=== PATIENT | male | born 1950 | race Two or more races ===

== ENCOUNTER 2017-03-15 15:25 | Emergency (ER) | payer BC ==
[2017-03-15] MEDS ORDERED: LACTATED RINGERS 2,000 ML ONE (16:30)
[2017-03-15 16:55] LABS: ABSOLUTE NEUTROPHIL COUNT 5.6 K/mm3 (1.8-7.7); BASO % 0.3 % (0.2-1.0); EOS # 0.3 (0.0-0.5); EOS % 3.4 % (0.9-2.9); HEMATOCRIT 35.8 % (32.0-52.0); HEMOGLOBIN 11.8 gm/l (14.0-18.0); IMM NEUT% 0.3 % (0-1); LYMPH # 1.5 (1.0-4.8); LYMPH % 18.5 % (15-45); MEAN CELL VOLUME 91.6 fl (80.0-94.0); MEAN CORPUSCULAR HEMOGLOBIN 30.2 pg (27.0-31.0); MONO # 0.6 (0.0-0.8); MONO % 7.2 % (4-12); NEUT % 70.3 % (43-75); PLATELET COUNT 381 K/mm3 (130-400); RED CELL DISTRIBUTION WIDTH 12.3 % (11.5-14.5)
[2017-03-15 17:04] LABS: ALBUMIN 3.4 gm/dL (3.5-5.7); CALCIUM 8.9 mg/dL (8.6-10.3)
[2017-03-15] MEDS ORDERED: ACETAMINOPHEN 650 MG SUP PR ONE (17:07)
--- NOTE | 2017-03-15 17:40 | RAD ---
Examination: AP pelvis and two-view left hip. Clinical indication:Ground-level fall. Left hip pain. Comparisons:None Findings: Pelvis: Osteopenia is noted. No displaced pelvic fracture is identified. The sacroiliac joints and anterior sacral neuroforamina are within normal limits. Spondylosis changes are noted. A sclerotic lesion involves the intertrochanteric distribution of the right femur. Currently no aggressive changes are identified. If warranted follow-up radiography dedicated to the right hip may be helpful. There is right hip joint space narrowing and osteophyte formation. Left hip: Fracture:No displaced fracture is identified. Joint space: There is left hip joint space narrowing. There is adjacent periarticular osteophyte formation. Femoral head:Smooth Acetabulum: Mild acetabular ossified formation is noted. Soft tissues: Vascular calcifications are noted. IMPRESSION: 1. Left hip osteoarthritis. No displaced fracture is identified. 2. Incidental note of right hip osteoarthritis and sclerotic lesion intertrochanteric distribution. Dedicated right hip radiographs may be helpful. 3. Osteopenia. 4. Lumbosacral spondylosis.
[2017-03-15 17:44] LABS: SPECIFIC GRAVITY 1.015 (1.001-1.030); URINE BILIRUBIN NEGATIVE (NEGATIVE); URINE BLOOD 4+ (NEGATIVE); URINE GLUCOSE (UA) NEGATIVE (NEGATIVE); URINE LEUKOCYTE ESTERASE 2+ (NEGATIVE); URINE NITRITE NEGATIVE (NEGATIVE); URINE PROTEIN 1+ (NEGATIVE); URINE UROBILINOGEN 12 mg/dL (0-1 mg/dl)
[2017-03-15 17:50] LABS: URINE APPEARANCE HAZY; URINE COLOR DARK YELLOW
[2017-03-15 17:52] LABS: URINE RBC >100 /hpf; URINE WBC >100 /hpf
[2017-03-15 17:53] LABS: URINE AMORPHOUS SEDIMENT 1+; URINE BACTERIA 3+; URINE EPITHELIAL CELLS FEW /hpf; URINE MUCUS 1+
[2017-03-15] MEDS ORDERED: CEFTRIAXONE 1 GRAM DUPLEX 50 ML IV ONE (18:21)
--- NOTE | 2017-03-15 18:40 | RAD ---
EXAMINATION:CHEST - 2 VIEWS CLINICAL INDICATION: Ground-level fall. Hip pain. COMPARISON:none FINDINGS: Heart size is normal. There is mild aortic ectasia. There is no adenopathy or effusion. There is no adenopathy identified. The lungs are clear. Osseous structures are unremarkable for age. IMPRESSION: Senescent changes of the chest with no acute process identified.
== END 2017-03-15 20:03 | disposition home or self-care (01) ==
LOC: ED 15:25
DX: M25.552 Pain in left hip (principal); N39.0 Urinary tract infection, site not specified; B96.4 Proteus (mirabilis) (morganii) as the cause of diseases classified elsewhere; B96.89 Other specified bacterial agents as the cause of diseases classified elsewhere; R50.9 Fever, unspecified; W18.30XA Fall on same level, unspecified, initial encounter; Y92.9 Unspecified place or not applicable
CPT/HCPCS: 83605; 85025; 87040 ×2; 87086; 80053; 81001; 71020; 73502; 99285; 96361 ×2; 96365; 36415; 99284; A9270; J7120; J0696